=== PATIENT | female | born 1980 | race African-American/Black ===

== ENCOUNTER 2018-09-14 14:51 | Emergency (ER) | payer SELFPAY ==
[~2018-09-14] VITALS: Ht 172.7 cm; Wt 68.0 kg
[2018-09-14 17:15] LABS: CLARITY URINE CLEAR (CLEAR); COLOR URINE YELLOW (YELLOW); KETONES URINE NEGATIVE (NEGATIVE); LEUKOCYTE ESTERASE URINE TRACE (NEGATIVE); NITRITE URINE NEGATIVE (NEGATIVE); OCCULT BLOOD URINE 1+ (NEGATIVE); PH URINE 8.5 (4.5-8.0); PROTEIN URINE NEGATIVE (NEGATIVE); SPECIFIC GRAVITY URINE 1.024 (1.005-1.030)
[2018-09-14 17:40] LABS: BASOPHILS % 0.5 % (0.0-2.0); EOSINOPHILS % 0.6 % (0.0-5.0); HEMATOCRIT. 36.8 % (36.0-48.0); HEMOGLOBIN. 12.3 g/dL (12.0-16.0); MEAN CORPUSCULAR VOLUME 95.6 fL (81.0-99.0); MEAN PLATELET VOLUME 7.4 fl (7.4-10.4); MONOCYTES % 7.3 % (2.0-8.0); NEUTROPHILS % 79.6 % (40.0-76.0); PLATELET 270 x1000/uL (130-400); RED BLOOD CELL COUNT 3.85 mill/uL (4.2-5.4); RED CELL DISTRIBUTION WIDTH 12.9 % (11.6-14.6)
[2018-09-14 17:41] LABS: CHLORIDE 103 mEq/L (98-107)
[2018-09-14 17:42] LABS: INR 1.1; PROTHROMBIN TIME 10.7 sec (9.1-11.1)
[2018-09-14] MEDS ORDERED: IBUPROFEN 400MG TABLET PO ONE (20:00)
[2018-09-14 20:05] VITALS: BP 132/82
== END 2018-09-14 20:06 | disposition home or self-care (01) ==
LOC: ER 14:51
DX: N83.201 Unspecified ovarian cyst, right side (principal)
CPT/HCPCS: 36415; 76830; 76856; 86850; 86900; 99284

== ENCOUNTER 2023-01-20 09:17 | Emergency (ER) | payer OTHER ==
[~2023-01-20] VITALS: Ht 175.3 cm; Wt 77.2 kg
[2023-01-20] MEDS ORDERED: TETANUS, DIPHTHERIA, PERTUSSIS VAC/PF 0.5ML (>10YR OLD) IM ONE (10:00)
[2023-01-20] MEDS ORDERED: CEPH500T MT (10:47)
[2023-01-20] MEDS ORDERED: BO1 TP (10:47)
[2023-01-20 10:59] VITALS: BP 136/84
== END 2023-01-20 11:01 | disposition home or self-care (01) ==
LOC: ER 09:17
DX: S41.112A Laceration without foreign body of left upper arm, initial encounter (principal); W26.9XXA Contact with unspecified sharp object(s), initial encounter; Y93.89 Activity, other specified; Y92.89 Other specified places as the place of occurrence of the external cause; Y99.8 Other external cause status
CPT/HCPCS: 71045; 73060; 81025; 90471; 90715; 99284; Z7610